=== PATIENT | male | born 1940 | race Caucasian/White ===

== ENCOUNTER 2025-04-25 15:02 | Inpatient (IN) | payer MEDICARE, OTHER ==
[~2025-04-25] VITALS: Ht 177.8 cm; Wt 71.7 kg
[2025-04-25] MEDS ORDERED: AMLO-212 PO (15:13)
[2025-04-25] MEDS ORDERED: ATEN100T PO (15:13)
[2025-04-25 15:41] LABS: PLATELET COUNT (AUTO) 155 K/uL (152-348); RED BLOOD CELL COUNT(AUTO) 3.58 MIL/uL (4.06-5.63); RED CELL DISTRIBUTION WIDTH 16.4 % (12.1-16.2); WHITE BLOOD COUNT (AUTO) 16.8 K/uL (3.6-10.2)
[2025-04-25] MEDS: IV NS 1000 ML 1,000 ML IV ONE (15:50)
[2025-04-25 15:55] LABS: ASPARTATE AMINOTRANSFERASE 66 U/L (15-37); CREATININE 2.9 mg/dL (0.6-1.3); SODIUM SERUM 143 mmol/L (136-145); TOTAL PROTEIN, SERUM 7.0 g/dL (6.4-8.2); UREA NITROGEN, BLOOD 39 mg/dL (7-18)
[2025-04-25] MEDS ORDERED: CEFTRIAXONE /D5W 50ML IVPB **ER PYXIS IV ONE (16:11)
[2025-04-25 16:12] LABS: LACTIC ACID 19.3 mmol/L (0.4-2.0)
[2025-04-25] MEDS: CEFTRIAXONE 2 G in IV DEXTROSE 5% 100 ML IV ONE (16:12)
[2025-04-25] MEDS: IV NORMAL SALINE 1000 ML BAG IV ONE (16:53)
[2025-04-25 18:00] VITALS: BP 146/56
[2025-04-25] MEDS ORDERED: ACETAMINOPHEN 325 MG TABLET PO PRN (18:00)
[2025-04-25] MEDS ORDERED: ONDANSETRON 4 MG/2 ML VIAL IV PRN (18:00)
[2025-04-25] MEDS ORDERED: IV NS 1000 ML 1,000 ML IV PRN (18:00)
[2025-04-25] MEDS ORDERED: MAGNESIUM HYDROXIDE 30 ML LIQUID UDC PO PRN (18:00)
[2025-04-25 18:24] LABS: *BILIRUBIN,URIN NEGATIVE (NEGATIVE); *BLOOD, URINE 1+ (NEGATIVE); *COLOR,URINE YELLOW (YELLOW); *KETONES,URINE 1+ (NEGATIVE); *PROTEIN,URINE 2+ (NEGATIVE); *UROBILINOGEN,URINE 0.2 E.U./dl (NORMAL); LEUKOCYTE ESTERASE ,URINE NEGATIVE (NEGATIVE); NITRITE, URINE NEGATIVE (NEGATIVE); UGLUCOSE NEGATIVE (NEGATIVE)
[2025-04-25 18:58] LABS: *CLARITY,URINE SLIGHTLY CLOUDY (CLEAR)
[2025-04-25 19:00] VITALS: BP 160/53; O2SAT 99
[2025-04-25 19:06] LABS: SQUAMOUS EPITHELIAL CELL,UR FEW /HPF (NONE SEEN); URINE AMORPHOUS URATE FEW /HPF
[2025-04-25 19:13] LABS: ABG BASE EXCESS -17.7 mmol/L (-2.0-3.0); ABG HCO3 6.8 mmol/L (21.0-28.0); ABG PCO2 15.1 mmHg (35.0-48.0); ABG PH 7.273 (7.350-7.450); ABG PO2 93.0 mmHg (83.0-108.0); ABG SITE RIGHT RADIAL; ABG TOTAL HEMOGLOBIN 10.9 G/dL (13.5-17.5); AaDO2 96.4 mmHg; FIO2 21.0 %
[2025-04-25 20:00] VITALS: BP 150/128; TEMP 98; O2SAT 95
[2025-04-25 21:00] VITALS: BP 155/59; O2SAT 96
[2025-04-25 21:14] LABS: CREATININE 2.9 mg/dL (0.6-1.3); SODIUM SERUM 143 mmol/L (136-145); UREA NITROGEN, BLOOD 44 mg/dL (7-18)
[2025-04-25 22:00] VITALS: BP 166/55; O2SAT 96
[2025-04-25] MEDS ORDERED: VANCOMYCIN IV 200 ML ONE (22:55)
[2025-04-25] MEDS ORDERED: PIPERACILLIN/TAZOBACTAM/D5W 50 ML IV ONE (22:55)
[2025-04-25] MEDS ORDERED: HEPARIN SODIUM,PORCINE 5,000 UNITS/ML VIAL ONE (22:56)
[2025-04-25] MEDS ORDERED: AMLODIPINE 5 MG TABLET ONE (22:56)
[2025-04-25 23:00] VITALS: BP 156/64; O2SAT 95
[2025-04-25] MEDS: AMLODIPINE 5 MG TABLET PO SCH (23:20)
[2025-04-25] MEDS: HEPARIN SODIUM,PORCINE 5,000 UNITS/ML VIAL SQ SCH (23:21)
[2025-04-25] MEDS: PIPERACILLIN SODIUM/TAZOBACTAM 3.375 G in IV DEXTROSE 5% 50 ML IV ONE (23:22)
[2025-04-25] MEDS: VANCOMYCIN IV 1,000 MG in IV DEXTROSE 5% 250 ML IV ONE (23:23)
[2025-04-26] VITALS (19 sets, daily range): BP systolic 114–175; BP diastolic 55–119; TEMP 97.8–98.2; O2SAT 91–97
[2025-04-26 04:56] LABS: PLATELET COUNT (AUTO) 87 K/uL (152-348); RED BLOOD CELL COUNT(AUTO) 3.40 MIL/uL (4.06-5.63); RED CELL DISTRIBUTION WIDTH 14.5 % (12.1-16.2); WHITE BLOOD COUNT (AUTO) 8.9 K/uL (3.6-10.2)
[2025-04-26 05:12] LABS: CREATININE 2.5 mg/dL (0.6-1.3); SODIUM SERUM 146 mmol/L (136-145); UREA NITROGEN, BLOOD 47 mg/dL (7-18)
[2025-04-26] MEDS: PIPERACILLIN SODIUM/TAZOBACTAM 3.375 G in IV DEXTROSE 5% 50 ML IV SCH (08:04)
[2025-04-26] MEDS: ATENOLOL 50 MG TABLET PO SCH (08:38)
[2025-04-26] MEDS: FOLIC ACID 1 MG TABLET PO SCH (13:20)
[2025-04-26] MEDS: THIAMINE HCL 100 MG TABLET PO SCH (13:21)
[2025-04-26] MEDS ORDERED: REMEDY ESSENTIAL ZINC PASTE 113 GM TOP PRN (14:15)
[2025-04-26] MEDS: IV NS 1000 ML 1,000 ML IV PRN (15:02)
[2025-04-26] MEDS: CHLORDIAZEPOXIDE HCL 25 MG CAPSULE PO ONE (16:35)
[2025-04-26] MEDS: HYDROCORTISONE 1% CREAM 30 GM TUBE TP PRN (17:21)
[2025-04-26] MEDS ORDERED: MINERAL OIL/PETROLATUM,WHITE 57 GM TUBE TOP PRN (18:30)
[2025-04-27] MEDS ORDERED: CEFTRIAXONE /D5W 50ML IVPB **ER PYXIS IV ONE (00:02)
[2025-04-27] MEDS: CEFTRIAXONE 1 G in IV DEXTROSE 5% 50 ML IV SCH (00:07)
[2025-04-27 06:35] LABS: PLATELET COUNT (AUTO) 93 K/uL (152-348); RED BLOOD CELL COUNT(AUTO) 3.60 MIL/uL (4.06-5.63); RED CELL DISTRIBUTION WIDTH 14.4 % (12.1-16.2); WHITE BLOOD COUNT (AUTO) 7.7 K/uL (3.6-10.2)
[2025-04-27 06:57] LABS: ASPARTATE AMINOTRANSFERASE 128 U/L (15-37); CREATINE KINASE, TOTAL 750 U/L (39-308); CREATININE 1.8 mg/dL (0.6-1.3); SODIUM SERUM 151 mmol/L (136-145); TOTAL PROTEIN, SERUM 6.1 g/dL (6.4-8.2); UREA NITROGEN, BLOOD 37 mg/dL (7-18)
[2025-04-27] MEDS: AMLODIPINE 5 MG TABLET PO SCH (08:19)
[2025-04-27] MEDS: ATENOLOL 50 MG TABLET PO SCH (08:19)
[2025-04-27] MEDS: POTASSIUM PHOSPHATE MM 15 MMOL in IV NORMAL SALINE 250 ML IV ONE (09:26)
[2025-04-27] MEDS: IV D5 1/2 NS 1000 ML 1,000 ML IV PRN (12:41)
[2025-04-27 16:00] VITALS: BP 150/65; TEMP 97.6; O2SAT 97
[2025-04-27] MEDS: PANTOPRAZOLE SODIUM 40 MG TABLET.DR PO SCH (16:24)
[2025-04-27 17:07] LABS: *OCCULT BLOOD STOOL NEGATIVE (NEGATIVE)
[2025-04-27 19:50] VITALS: BP 132/75; TEMP 98.6; O2SAT 94
[2025-04-27] MEDS ORDERED: VANCOMYCIN IV 1,000 MG in IV DEXTROSE 5% 250 ML IV SCH (23:00)
[2025-04-28] MEDS: TEMAZEPAM 7.5 MG CAPSULE PO ONE
[2025-04-28 06:04] VITALS: BP 149/57; TEMP 98.7; O2SAT 93
[2025-04-28 06:26] LABS: PLATELET COUNT (AUTO) 91 K/uL (152-348); RED BLOOD CELL COUNT(AUTO) 3.58 MIL/uL (4.06-5.63); RED CELL DISTRIBUTION WIDTH 14.5 % (12.1-16.2); WHITE BLOOD COUNT (AUTO) 6.3 K/uL (3.6-10.2)
[2025-04-28 06:32] LABS: CREATININE 1.3 mg/dL (0.6-1.3); SODIUM SERUM 148 mmol/L (136-145); UREA NITROGEN, BLOOD 28 mg/dL (7-18)
[2025-04-28] MEDS: POTASSIUM PHOSPHATE MM 15 MMOL in IV NORMAL SALINE 250 ML IV ONE (09:11)
[2025-04-28] MEDS ORDERED: THIA100T13 PO (09:51)
[2025-04-28] MEDS ORDERED: PANT40TA49 PO (09:51)
[2025-04-28] MEDS ORDERED: FOLI1TAB94 PO (09:51)
[2025-04-28 11:32] VITALS: BP 139/59; TEMP 98.4; O2SAT 68
[2025-04-28 15:20] VITALS: BP 133/60; TEMP 98.4; O2SAT 96
[2025-04-29 07:07] LABS: PTH, INTACT 32 pg/mL (15-65)
== END 2025-04-28 18:15 | DRG 640 ==
LOC: ER 15:02 → ICU IN 20:19 → CCU 04-26 06:44 → MEDSURG3 04-26 18:45
PROVIDERS: ADMIT Nurse Practitioner Acute Care; ATTEND Nurse Practitioner Acute Care
PROC: 05HA33Z Insertion of Infusion Device into Left Brachial Vein, Percutaneous Approach (ICD-10-PCS; principal; 2025-04-25)
PROC: 05HB33Z Insertion of Infusion Device into Right Basilic Vein, Percutaneous Approach (ICD-10-PCS; 2025-04-27)
DX: E86.0 Dehydration (principal); I21.A1 Myocardial infarction type 2; N17.0 Acute kidney failure with tubular necrosis; F10.139 Alcohol abuse with withdrawal, unspecified; E44.1 Mild protein-calorie malnutrition; K76.6 Portal hypertension; E87.20 Acidosis, unspecified; E87.5 Hyperkalemia; R00.0 Tachycardia, unspecified; K70.30 Alcoholic cirrhosis of liver without ascites; E88.09 Other disorders of plasma-protein metabolism, not elsewhere classified; D53.9 Nutritional anemia, unspecified; D69.6 Thrombocytopenia, unspecified; I10 Essential (primary) hypertension; R19.5 Other fecal abnormalities; D72.829 Elevated white blood cell count, unspecified
CPT/HCPCS: 36415; 36600; 71045; 74150; 83605; 83735; 83970; 84100; 84155; 84165; 84484; 85025; 85730; 87040; 87086; 93307; A4606; A4663; G0378; J0696; J1644; J2543; J3373; J3490; J7040; J7042; J7050